=== PATIENT | male | born 1965 | race Caucasian/White ===

== ENCOUNTER → 2021-05-07 | Outpatient (CLI) | payer OTHER ==
[~2021-05-07] MED LIST: ATENOLOL50 MG PO; LISINOPRIL-HCT1 EACH
== END ==
LOC: DX 15:04
PROVIDERS: ATTEND Family Medicine
DX: Z13.820 Encounter for screening for osteoporosis (principal); R91.8 Other nonspecific abnormal finding of lung field
CPT/HCPCS: 77080

== ENCOUNTER 2021-08-14 05:39 | Emergency (ER) | payer OTHER ==
[~2021-08-14] VITALS: Ht 180.3 cm; Wt 113.4 kg
[2021-08-14] MEDS ORDERED: ORPHENADRINE CITRATE 30 MG/ML VIAL IM ONE (06:00)
[2021-08-14] MEDS ORDERED: KETOROLAC TROMETHAMINE 60 MG/2 ML VIAL IM ONE (06:00)
[2021-08-14] MEDS ORDERED: METHOCARBAMOL750 MG PO ×2 (06:01→06:03)
[2021-08-14] MEDS ORDERED: KETOROLAC TROMETHAMINE 60 MG/2 ML VIAL ONE (06:10)
[2021-08-14] MEDS ORDERED: ORPHENADRINE CITRATE 30 MG/ML VIAL ONE (06:11)
== END 2021-08-14 06:05 | disposition home or self-care (01) ==
LOC: ER 05:58
DX: M62.830 Muscle spasm of back (principal); I10 Essential (primary) hypertension; M43.22 Fusion of spine, cervical region; F17.210 Nicotine dependence, cigarettes, uncomplicated
CPT/HCPCS: 99282; J1885; J2360